=== PATIENT | female | born 1965 | race Caucasian/White ===

== ENCOUNTER 2018-07-31 09:09 | Day surgery (SDC) | payer OTHER ==
[2018-07-31] MEDS ORDERED: MIDAZOLAM 1 MG/ML 2 ML INJ (11:48)
[2018-07-31] MEDS ORDERED: FENTAnyl 50 MCG/ML VIAL (11:48)
== END 2018-07-31 11:56 | disposition home or self-care (01) ==
LOC: GIL 09:09
DX: K92.1 Melena (principal); K64.8 Other hemorrhoids
CPT/HCPCS: 45378